=== PATIENT | female | born 1940 ===

== ENCOUNTER → 2021-11-08 09:47 | Outpatient (BNVA) | payer MEDICARE, SELFPAY | PROVIDERS: PCP Nurse Practitioner; Visit Provider Psychiatry & Neurology Neurology | DX: G20 Parkinson's disease (principal); F09 Unspecified mental disorder due to known physiological condition | CPT/HCPCS: Q3014 ==

== ENCOUNTER → 2022-02-02 14:28 | Outpatient (BNVA) | payer MEDICARE, SELFPAY | PROVIDERS: PCP Nurse Practitioner; Visit Provider Psychiatry & Neurology Neurology | DX: G20 Parkinson's disease (principal); F09 Unspecified mental disorder due to known physiological condition | CPT/HCPCS: 99212 ==

== ENCOUNTER → 2022-05-16 14:36 | Outpatient (BNVA) | payer MEDICARE, SELFPAY | PROVIDERS: PCP Nurse Practitioner; Visit Provider Psychiatry & Neurology Neurology | DX: G20 Parkinson's disease (principal); F09 Unspecified mental disorder due to known physiological condition | CPT/HCPCS: 99212 ==

== ENCOUNTER → 2022-11-07 10:37 | Outpatient (BNVA) | payer MEDICARE, SELFPAY | PROVIDERS: PCP Nurse Practitioner; Visit Provider Nurse Practitioner Family | DX: G20 Parkinson's disease (principal); F09 Unspecified mental disorder due to known physiological condition | CPT/HCPCS: 99212 ==